=== PATIENT | female | born 1940 | race Caucasian/White ===

== ENCOUNTER 2017-09-24 13:44 | Inpatient (IN) | payer OTHER, BC ==
[~2017-09-24] VITALS: Ht 167.6 cm; Wt 76.7 kg
[2017-09-24 16:11] LABS: BASOPHIL (%) 0.3 % (0-1); BASOPHIL COUNT 0.1 K/uL (0-0.1); EOSINOPHIL (%) 0 % (0-5); HEMATOCRIT 35.7 % (36.0-46.0); HEMOGLOBIN 12.6 G/DL (11.9-15.5); IMMATURE GRANULOCYTE (%) 1.2 % (0.0-0.7); LYMPHOCYTE (%) 5.2 % (15-42); LYMPHOCYTE COUNT 1.5 K/uL (1.0-2.8); MCH 32.2 PG (29.0-34.0); MCHC 35.3 G/DL (30.0-36.0); MCV 91.3 FL (83-99); MONOCYTE (%) 5.5 % (3-12); MONOCYTE COUNT 1.6 K/uL (0-0.8); NEUTROPHIL (%) 87.8 % (45-76); PLATELET COUNT 226 K/uL (156-360); RBC DIS.WIDTH-CV 12.1 % (11.8-14.6); RBC DIS.WIDTH-SD 40.5 % (39-53); RED BLOOD COUNT 3.91 M/uL (3.80-5.20); WHITE BLOOD COUNT 28.4 K/uL (4.1-10.2)
[2017-09-24] MEDS ORDERED: PLAVIX75 MG PO (16:11)
[2017-09-24] MEDS ORDERED: HYZAAR 50-121 TABLET PO (16:14)
[2017-09-24] MEDS ORDERED: CALCIUM 600 +1 EAC2 PO (16:15)
[2017-09-24] MEDS ORDERED: BUSPAR15 MG PO (16:15)
[2017-09-24 16:17] LABS: INTER. NORMALIZED RATIO 1.2
[2017-09-24 16:20] LABS: PTT 30.7 SEC (25-37)
[2017-09-24 16:23] LABS: ALBUMIN 4.2 g/dL (3.2-4.8); CHLORIDE 105 mEq/L (99-109); POTASSIUM 3.7 mEq/L (3.7-5.4); SODIUM 143 mEq/L (136-147)
[2017-09-24] MEDS ORDERED: TYLENOL REGULA325 MG PO (16:23)
[2017-09-24 16:24] LABS: MAGNESIUM 1.8 mg/dL (1.3-2.7)
[2017-09-24] MEDS ORDERED: SEROQUEL12.5 MG PO (16:25)
[2017-09-24 16:26] LABS: GLUCOSE 132 mg/dL (70-99); TOTAL PROTEIN 7.3 g/dL (6.4-8.3)
[2017-09-24] MEDS ORDERED: NYSTOP60 GM TP (16:27)
[2017-09-24 16:28] LABS: TOTAL BILIRUBIN 0.9 mg/dL (0.0-1.0)
[2017-09-24 16:29] LABS: ALKALINE PHOSPHATASE 70 IU/L (3-129); CREATININE 1.3 mg/dL (0.6-1.3); GFR ESTIMATE (CALCULATED) 42 mL/min/
[2017-09-24] MEDS ORDERED: FREEZE IT RE113.4 GM TP (16:29)
[2017-09-24 16:30] LABS: UREA NITROGEN (BUN) 19 mg/dL (9-23)
[2017-09-24 16:31] LABS: AST (GOT) 32 IU/L (2-34)
[2017-09-24 16:32] LABS: ALT (GPT) 21 IU/L (3-49)
[2017-09-24 16:35] LABS: TROP-I INTERPRETATION NEGATIVE; TROPONIN-I < 0.01 ng/mL (0.0-0.30)
[2017-09-24 17:59] LABS: APPEARANCE CLOUDY ((CLEAR)); BILIRUBIN NEGATIVE; BLOOD SMALL; COLOR YELLOW ((YELLOW)); GLUCOSE (STRIP) NEGATIVE; KETONES 5; LEUKOCYTES TRACE; NITRITE POSITIVE; PROTEIN (STRIP) 30; SPECIFIC GRAVITY 1.017 (1.000-1.030); UROBILINOGEN 0.2 MG/DL (0.2-1.0)
[2017-09-24 18:07] LABS: BACTERIA RARE /HPF; EPITHELIAL CELLS RARE /HPF; MUCUS 1+ /LPF; RED BLOOD CELLS 0-5 /HPF (0-5); UCUL ADDED? YES; WHITE BLOOD CELLS 15-20 /HPF (0-5)
[2017-09-24 20:53] VITALS: BP 191/77
[2017-09-24 23:18] VITALS: BP 184/73
[2017-09-25 03:43] VITALS: BP 107/51
[2017-09-25 08:17] VITALS: BP 112/50
[2017-09-25 08:35] LABS: HEMATOCRIT 30.7 % (36.0-46.0); MCH 31.7 PG (29.0-34.0); MCHC 34.5 G/DL (30.0-36.0); MCV 91.9 FL (83-99); PLATELET COUNT 169 K/uL (156-360); RBC DIS.WIDTH-CV 12.4 % (11.8-14.6); RBC DIS.WIDTH-SD 41.4 % (39-53); RED BLOOD COUNT 3.34 M/uL (3.80-5.20); WHITE BLOOD COUNT 16.6 K/uL (4.1-10.2)
[2017-09-25 08:44] LABS: HEMOGLOBIN 10.6 G/DL (11.9-15.5)
[2017-09-25 08:49] LABS: CHLORIDE 105 MEQ/L (99-109); CREATININE 1.3 MG/DL (0.6-1.3); GFR ESTIMATE (CALCULATED) 42 mL/min/; GLUCOSE 122 mg/dL (70-99); POTASSIUM 3.9 MEQ/L (3.7-5.4); SODIUM 142 MEQ/L (136-147); UREA NITROGEN (BUN) 25 mg/dL (9-23)
[2017-09-25 11:40] VITALS: BP 118/52
[2017-09-25 15:19] VITALS: BP 116/57
[2017-09-25 20:05] VITALS: BP 132/61
[2017-09-26 02:59] VITALS: BP 118/61
[2017-09-26 06:03] LABS: HEMATOCRIT 26.3 % (36.0-46.0); HEMOGLOBIN 8.9 G/DL (11.9-15.5); INTER. NORMALIZED RATIO 1.2; MCV 92.9 FL (83-99)
[2017-09-26 06:06] LABS: PTT 27.3 SEC (25-37)
[2017-09-26 06:46] LABS: CHLORIDE 105 MEQ/L (99-109); CREATININE 1.3 MG/DL (0.6-1.3); GFR ESTIMATE (CALCULATED) 42 mL/min/; GLUCOSE 143 mg/dL (70-99); POTASSIUM 4.1 MEQ/L (3.7-5.4); SODIUM 138 MEQ/L (136-147); UREA NITROGEN (BUN) 24 mg/dL (9-23)
[2017-09-26 08:02] VITALS: BP 142/85
[2017-09-26 15:34] VITALS: BP 136/63
[2017-09-26 20:34] VITALS: BP 128/61
[2017-09-27 01:01] VITALS: BP 143/56
[2017-09-27 06:12] LABS: HEMATOCRIT 24.9 % (36.0-46.0); HEMOGLOBIN 8.6 G/DL (11.9-15.5); MCH 31.5 PG (29.0-34.0); MCHC 34.5 G/DL (30.0-36.0); MCV 91.2 FL (83-99); PLATELET COUNT 132 K/uL (156-360); RBC DIS.WIDTH-CV 12.3 % (11.8-14.6); RBC DIS.WIDTH-SD 40.9 % (39-53); RED BLOOD COUNT 2.73 M/uL (3.80-5.20); WHITE BLOOD COUNT 13.2 K/uL (4.1-10.2)
[2017-09-27 06:16] LABS: INTER. NORMALIZED RATIO 1.5
[2017-09-27 06:39] LABS: ALKALINE PHOSPHATASE 45 IU/L (3-129); ALT (GPT) 11 IU/L (3-49); AST (GOT) 41 IU/L (2-34); CHLORIDE 106 MEQ/L (99-109); CREATININE 1.1 MG/DL (0.6-1.3); GFR ESTIMATE (CALCULATED) 51 mL/min/; POTASSIUM 3.5 MEQ/L (3.7-5.4); SODIUM 144 MEQ/L (136-147); TOTAL BILIRUBIN 0.6 MG/DL (0.0-1.0); TOTAL PROTEIN 5.6 G/DL (6.4-8.3); UREA NITROGEN (BUN) 22 mg/dL (9-23)
[2017-09-27 06:42] LABS: GLUCOSE 104 mg/dL (70-99)
[2017-09-27 08:12] VITALS: BP 148/60
[2017-09-27 11:27] VITALS: BP 135/78
[2017-09-27 16:51] VITALS: BP 151/60
[2017-09-27 20:45] VITALS: BP 136/78
[2017-09-27 23:52] VITALS: BP 126/73
[2017-09-28 06:28] LABS: INTER. NORMALIZED RATIO 1.7
[2017-09-28 07:28] VITALS: BP 164/69
[2017-09-28 12:20] VITALS: BP 136/84
[2017-09-28 17:13] VITALS: BP 135/76
[2017-09-28 23:45] VITALS: BP 131/61
[2017-09-29 07:10] LABS: HEMATOCRIT 24.2 % (36.0-46.0); HEMOGLOBIN 8.1 G/DL (11.9-15.5); MCH 31.5 PG (29.0-34.0); MCHC 33.5 G/DL (30.0-36.0); MCV 94.2 FL (83-99); PLATELET COUNT 161 K/uL (156-360); RBC DIS.WIDTH-CV 12.6 % (11.8-14.6); RBC DIS.WIDTH-SD 43.1 % (39-53); RED BLOOD COUNT 2.57 M/uL (3.80-5.20); WHITE BLOOD COUNT 10.2 K/uL (4.1-10.2)
[2017-09-29 07:14] LABS: INTER. NORMALIZED RATIO 1.7
[2017-09-29 07:35] LABS: CHLORIDE 111 MEQ/L (99-109); CREATININE 0.9 MG/DL (0.6-1.3); GFR ESTIMATE (CALCULATED) > 59 mL/min/; GLUCOSE 101 mg/dL (70-99); POTASSIUM 3.7 MEQ/L (3.7-5.4); SODIUM 144 MEQ/L (136-147); UREA NITROGEN (BUN) 18 mg/dL (9-23)
[2017-09-29 09:10] VITALS: BP 144/69
[2017-09-29 15:30] VITALS: BP 142/76
[2017-09-29 23:35] VITALS: BP 130/60
[2017-09-30 07:07] LABS: INTER. NORMALIZED RATIO 1.8
[2017-09-30 07:46] VITALS: BP 158/64
[2017-09-30 08:51] LABS: HEMATOCRIT 26.7 % (36.0-46.0); MCV 94.7 FL (83-99)
[2017-09-30] MEDS ORDERED: TYLENOL REGULA325 MG PO (14:17)
[2017-09-30] MEDS ORDERED: COUMADIN1 MG PO (14:17)
[2017-09-30] MEDS ORDERED: CEFTRIAXONE1 G1 IV (14:17)
[2017-09-30] MEDS ORDERED: THERAGRAN1 TABLET PO (14:17)
[2017-09-30 16:27] VITALS: BP 125/58
== END 2017-09-30 18:30 | DRG 481 ==
LOC: EME 13:44 → 3EAST 19:03 → EDOF 19:03 → ENRESERV 19:12 → 3EAST 20:03
PROVIDERS: Emergency Medicine; Family Medicine; Internal Medicine; Orthopaedic Surgery; Physician Assistant
PROC: 0QS636Z Reposition Right Upper Femur with Intramedullary Internal Fixation Device, Percutaneous Approach (ICD-10-PCS; principal; 2017-09-24)
DX: S72.141A Displaced intertrochanteric fracture of right femur, initial encounter for closed fracture (principal); W06.XXXA Fall from bed, initial encounter; F03.90 Unspecified dementia, unspecified severity, without behavioral disturbance, psychotic disturbance, mood disturbance, and anxiety; I10 Essential (primary) hypertension; M19.90 Unspecified osteoarthritis, unspecified site; Z87.891 Personal history of nicotine dependence; I45.10 Unspecified right bundle-branch block; W18.30XA Fall on same level, unspecified, initial encounter; D72.829 Elevated white blood cell count, unspecified; N39.0 Urinary tract infection, site not specified; Z66 Do not resuscitate; D64.9 Anemia, unspecified; S00.431A Contusion of right ear, initial encounter; S01.311A Laceration without foreign body of right ear, initial encounter
CPT/HCPCS: 70450; 71045; 71250; 72125; 73501; 73502; 76000; 80048; 80053; 81003; 82948; 83735; 84484; 85014; 85018; 85025; 85027; 85610; 85730; 86850; 86900; 86901; 87077; 87086 GA; 87186; 93005; 94799; 97530 GP; 99281; 99285; C1713; J0131; J0330; J0690; J0696; J1100; J1630; J1885; J2405; J3010; J7050; J7120